=== PATIENT | male | born 1950 | race Caucasian/White ===

== ENCOUNTER 2024-12-17 12:55 | Emergency (ER) | payer OTHER, SELFPAY ==
[2024-12-17 13:01] VITALS: BP 142/81
--- NOTE | 2024-12-17 15:56 | ED.GENMED ---
History of Present Illness
General
Chief Complaint: Headache
Source: patient
Exam Limitations: none
Time Seen by Provider: 12/17/24 15:42
Nursing documentation reviewed up to this point in time: agreed with
History of Present Illness
History of Present Illness:
Patient to ED with complaint of severe frontal headache. Pain started 1 week ago. On wednesday AM he states he was walking to kitchen and pain became worse and he became dizzy. He lowered self to floor After a few minutes the dizziness resolved but
he began to feel nauseated. Headache and nausea thru wednesday. He reports being able to continue his daily jogging on and Wednesday. Pain has continued to worsen throughout week. Since wednesday he has not been able to jog due to pain. Reports
pain is tolerable if sitting but any movement of head causes increase in pain. Denies fver/chills. No neck pain, no skin rash. Went to today but was referred to ED. Denies any vision changes, photophobia.
Past History
Past History
ED Past Medical History: HTN, Hypercholesterolemia, Hypothyroidism and Other (BPH, diverticulitis May 2020)
ED Past Surgical History: Urological (Prostate biopsy x2, negative.)
Social History
Tobacco: Non-smoker
Alcohol: None
Drug: None
Personal:
Living: with family
Employment: Retired
Family History
Family History: CAD
Review of Systems
Review of Systems
Allergies reviewed?: Yes
All Other Systems: ROS reviewed and negative except as documented in HPI and ROS
Constitutional: Reports no symptoms
EENT: Reports no symptoms
Respiratory: Reports no symptoms
Cardiac: Reports no symptoms
ABD/GI: Reports nausea
: Reports no symptoms
Musculoskeletal: Reports no symptoms
Skin: Reports no symptoms
Neurological: Reports headache
Psychiatric: Reports no symptoms
Phy Exam
General Physical Exam
General Presentation: mild distress
General age: appears stated age
General Skin: warm and dry
General Habitus: normal
General Mental: alert
Eye Exam
Eye Exam: PERRL, EOMI, conjunctiva normal and globe normal
Neurological Exam
Neurological Exam: alert, oriented x3, CN II-XII intact, no motor deficits, no sensory deficits and speech normal
Musculoskeletal Exam
Musculoskeletal Exam: full ROM and neuro vasc intact
Skin Exam
Skin Exam: normal color, warm/dry and no rash
Psychiatric Exam
Psychiatric Exam: normal mood/affect
Course
Orders/Labs/Results
Orders:
Orders
12/17/24 15:53
CT Head W/o Iv Contrast Urgent
Comment:
Reason For Exam: atypical headache
Sinuses wo Contrast CT [CT Sinuses W/o Iv Contrast] Urgent
Comment:
Reason For Exam: head pain
Morphine Sulfate 2 mg IV NOW STA
Ondansetron Injectable [Zofran] 4 mg IV NOW STA
12/17/24 16:02
Complete Blood Count/With Diff Urgent
Comprehensive Metabolic Panel Urgent
12/17/24 19:26
Amoxicillin 875 mg/Clav 125 mg [Augmentin 875 mg/125 mg] 1 tablet PO NOW STA
Abnormal Lab Results
12/17/24
16:02
Absolute Neuts (auto) 7.0 H 10^3/uL
(1.4-6.5)
12/17/24 16:02
12/17/24 16:02
Vital Signs
Initial and Last Documented VS:
Initial Vital Signs
Temp Pulse Resp BP Pulse Ox
98.2 F 68 16 142/81 98
12/17/24 13:01 12/17/24 13:01 12/17/24 13:01 12/17/24 13:01 12/17/24 13:01
Last Documented Vital Signs
Temp Pulse Resp BP Pulse Ox
98.2 F 68 16 137/74 97
12/17/24 13:01 12/17/24 13:01 12/17/24 13:01 12/17/24 17:00 12/17/24 17:00
*Radiology
Radiology exam reviewed: radiology read reviewed
*Pulse Oximetry
Patient hypoxic: no
*Critical Care Note
Total Time (30-74mins, 75-104mins- exclusive of procedures): Not Applicable
Update Note
Update Note:
Labs CT report reviewed with patient. CT confirming acute maxillary sinusitis. Augmentin started in dept, rx sent to pharmacy. Improved after pain medication. Discussed s/s to return to ED and pateint is agreeable to plan. WIll discharge home
and he will follow up with PCP
ED Attending Note
-
Portions of this chart may have been created with voice recognition software.� Occasional wrong word or��sound alike� substitutions may have occurred due to the inherent limitations of voice recognition software.
Discharge Plan
Departure
Patient Disposition: Home (Routine Discharge)
Date of Disposition: 12/17/24
Time of Disposition: 19:27
Patient with high blood pressure during this ER visit?: No
Condition: Good
Covid-19: Not Applicable
Discharge Problem:
Acute maxillary sinusitis
Instructions: Sinusitis in adults - ED discharge instructions
Prescriptions:
New
amoxicillin-pot clavulanate 875-125 mg tablet
1 tab PO BID Qty: 20 0RF
No Action
aspirin 81 MG tablet,delayed release (DR/EC)
81 mg PO DAILY
rosuvastatin 20 MG tablet
40 mg PO DAILY
B Complex Tab
1 tab PO DAILY
multivitamin 1 EACH tablet
1 ea PO DAILY
benazepril [Lotensin] 5 MG tablet
5 mg PO DAILY
levothyroxine 125 MCG tablet
125 mcg PO DAILY
fish oil-dha-epa 1 EACH capsule
1 ea PO DAILY
ascorbic acid (vitamin C) 500 MG capsule
500 mg PO DAILY
Timolol
1 drp RIGHT EYE DAILY
Vitamin D
1 tab PO DAILY
amoxicillin-pot clavulanate 1 TABLET tablet
1 tab PO Q12 Qty: 20 0RF
ibuprofen 800 MG tablet
800 mg PO QIDPRN PRN (Reason: pain, fever. Take with food.) Qty: 30 0RF
hydrocodone-acetaminophen 1 EACH tablet
1 ea PO QIDPRN PRN (Reason: pain) Qty: 10 0RF
Referrals:
Yuri Sweeney MD [Family Provider] - Follow up in 2-3 days
Activity Restrictions/Additional Instructions:
Return to the emergency department immediately for any changes in/worsening of your symptoms.
Interventions
Interventions:
*Risk Screen - Suicide Last Done: 12/17/24 13:01
*General Assessment Last Done: 12/17/24 15:10
*Neglect/Abuse Screening Last Done: 12/17/24 13:01
ED- Fall Risk Assessment Last Done: 12/17/24 14:51
*ED COVID-19 Vaccine History Last Done: 12/17/24 14:51
*Nursing Disposition Last Done: 12/17/24 19:42
ED- Neurological Assessment Last Done: 12/17/24 14:51
Discharge Date and Time
Discharge Date/Time: 12/17/24 19:43
Print Language: CITIZEN [place]
[2024-12-17 16:00] VITALS: BMI 26.2
[2024-12-17] MEDS: MORPHINE SULFATE 2 MG IV (16:03)
[2024-12-17] MEDS: ZOFRAN 4 MG IV (16:03)
[2024-12-17 16:06] VITALS: BP 149/75
[2024-12-17 16:14] LABS: % Basophils 0.4 % (0-2); % Eosinophils 0.6 % (0-6); % Immature Granulocytes 0.4 % (0-0.5); % Lymphocytes 21.2 % (20.5-51.1); % Monocytes 5.6 % (1.7-9.3); % Neutrophils 71.8 % (42.2-75.2); Absolute Eosinophils 0.1 10^3/uL (0-0.7); Absolute Lymphocytes 2.1 10^3/uL (1.2-3.4); Absolute Monocytes 0.5 10^3/uL (0.1-0.6); Hematocrit 43.2 % (39.0-52.0); Hemoglobin 14.6 g/dL (13.0-18.0); Mean Corp Hgb Conc. 33.8 g/dL (33.0-37.0); Mean Corpuscular Hgb 29.6 pg (27.0-31.0); Mean Corpuscular Volume 87.4 fL (80.0-94.0); Mean Platelet Volume 9.1 fL (7.4-10.4); Nucleated Red Blood Cells % 0 % (-); Platelet Count 252 10^3/uL (130-400); Red Blood Cell Count 4.94 10^6/uL (4.70-6.10); White Blood Cell Count 9.7 10^3/uL (4.8-10.8)
[2024-12-17 16:26] LABS: ALT (SGPT) 29 U/L (0-50); AST (SGOT) 28 U/L (17-59); Albumin 4.1 g/dl (3.5-5.0); Alkaline Phosphatase 49 U/L (38-126); Blood Urea Nitrogen 18 mg/dl (9-20); Calcium 9.4 mg/dl (8.4-10.2); Carbon Dioxide 30 mmol/L (22-30); Chloride 104 mmol/L (98-107); Estimated Creatinine Clearance 68 ml/min; Glucose 91 mg/dl (70-99); Potassium 4.5 mmol/L (3.5-5.1); Sodium 138 mmol/L (135-145); Total Bilirubin 0.5 mg/dl (0.2-1.3); Total Protein 6.6 g/dl (6.3-8.2); eGFR > 60.00
[2024-12-17 17:00] VITALS: BP 137/74
[2024-12-17] MEDS: AUGMENTIN 875 MG/125 MG 1 TABLET PO (19:35)
== END 2024-12-17 19:43 | disposition home or self-care (01) ==
LOC: EMR 12:55
PROVIDERS: Nurse Practitioner; EMERGENCY PHYSICIAN Emergency Medicine; FAMILY PHYSICIAN Internal Medicine
DX: J01.00 Acute maxillary sinusitis, unspecified (principal); I10 Essential (primary) hypertension; E78.00 Pure hypercholesterolemia, unspecified; E03.9 Hypothyroidism, unspecified
CPT/HCPCS: 96374; 96375; 99284; 70450; 70486; 80053; 85025

== ENCOUNTER → 2025-07-10 08:30 | Outpatient (REF) | payer OTHER, SELFPAY | LOC: MRI 3T 08:30 | PROVIDERS: ATTENDING PHYSICIAN Psychiatry & Neurology Neurology; FAMILY PHYSICIAN Internal Medicine | DX: G96.08 Other cranial cerebrospinal fluid leak (principal) | CPT/HCPCS: 70551 ==

== ENCOUNTER → 2025-08-15 06:37 | Outpatient (REF) | payer OTHER, SELFPAY | LOC: MRI 06:37 | PROVIDERS: ATTENDING PHYSICIAN Physician Assistant Surgical; FAMILY PHYSICIAN Internal Medicine | DX: S76.111A Strain of right quadriceps muscle, fascia and tendon, initial encounter (principal) | CPT/HCPCS: 73718 ==